=== PATIENT | female | born 1965 | race Native Hawaiian/Other Pacific Islander ===

== ENCOUNTER 2017-02-23 11:06 | Observation (INO) | payer OTHER ==
[~2017-02-23] VITALS: Ht 165.1 cm; Wt 69.6 kg
[2017-02-23] VITALS (7 sets, daily range): BP systolic 156–212; BP diastolic 68–110; TEMP 97.9–99; Ht 165.1 cm; Wt 69.6 kg
[~2017-02-23 11:06] MED LIST: METFORMIN ER1000 MG PO
[2017-02-23 12:15] LABS: PLATELET COUNT 237 K/uL (152-353)
[2017-02-23 12:26] LABS: POTASSIUM 3.8 mmol/L (3.6-5.2); SODIUM 136 mmol/L (136-145)
[2017-02-24 00:02] VITALS: BP 138/72; TEMP 98
[2017-02-24 04:00] VITALS: BP 164/77; TEMP 97.9
[2017-02-24 05:14] LABS: PLATELET COUNT 153 K/uL (152-353)
[2017-02-24 05:33] LABS: POTASSIUM 3.8 mmol/L (3.6-5.2); SODIUM 134 mmol/L (136-145)
[2017-02-24 08:00] VITALS: BP 144/73; TEMP 98
--- NOTE | 2017-02-24 09:10 | NUR ---
PATIENT HAS CELLULITIS AND ABCESS TO THE LEFT SIDE OF FACE AND IS RECEIVING IV ANTIBIOTICS BUT WILL BE ABLE TO BE DISCHARGED HOME ON PO ANTIBIOTICS.
[2017-02-24 12:00] VITALS: BP 168/77; TEMP 98.1
--- NOTE | 2017-02-24 15:02 | NUR ---
IV D/C'd. DISCHARGE INSTRUCTIONS SIGNED AND GIVEN. Pt. EXIT OUT OF FRONT ENTRANCE AMBULATING.
[2017-03-06] MEDS ORDERED: AMOXICILLIN250 M2 PO (00:03)
== END 2017-02-24 15:02 | disposition home or self-care (01) ==
LOC: ED 11:06 → MED/SURG 13:42
PROVIDERS: Emergency Medicine; ADMIT Specialist
DX: L03.211 Cellulitis of face (principal); R07.89 Other chest pain
CPT/HCPCS: 36591; 80048; 80053; 80061; 82550; 82948; 83036; 83735; 83880; 84484; 85027; 85379; 85610; 85730; 93005; 99220; 99283; G0378

== ENCOUNTER 2017-10-03 08:36 | Emergency (ER) | payer OTHER ==
[~2017-10-03] VITALS: Ht 165.1 cm; Wt 68.0 kg
[~2017-10-03 08:36] MED LIST changes: +AMOXICILLIN250 M2 PO
[2017-10-03 08:40] VITALS: TEMP 98.2
[2017-10-03 09:58] VITALS: BP 165/85
== END 2017-10-03 09:58 | disposition home or self-care (01) ==
LOC: ED 08:36
DX: J40 Bronchitis, not specified as acute or chronic (principal); J44.1 Chronic obstructive pulmonary disease with (acute) exacerbation; I10 Essential (primary) hypertension; Z91.19 Patient's noncompliance with other medical treatment and regimen; Z72.0 Tobacco use
CPT/HCPCS: 87081; 87880; 99283; J0360

== ENCOUNTER 2018-11-24 08:55 | Emergency (ER) | payer OTHER ==
[~2018-11-24] VITALS: Ht 165.1 cm; Wt 61.2 kg
[2018-11-24 10:20] VITALS: BP 161/82; TEMP 98.7
== END 2018-11-24 10:20 | disposition home or self-care (01) ==
LOC: ED 08:55
DX: K02.9 Dental caries, unspecified (principal); K04.7 Periapical abscess without sinus
CPT/HCPCS: 99282

== ENCOUNTER 2019-11-25 22:29 | Observation (INO) | payer OTHER ==
[~2019-11-25] VITALS: Ht 165.1 cm; Wt 66.0 kg
[2019-11-25 22:30] VITALS: BP 202/88; TEMP 98.9
[2019-11-25 22:45] VITALS: BP 166/89
[2019-11-25 22:57] LABS: PLATELET COUNT 244 K/uL (152-353)
[2019-11-25 23:15] VITALS: BP 158/77
[2019-11-25 23:46] LABS: PARTIAL THROMBOPLASTIN TIME 21.4 SECONDS (24.5-33.6)
[2019-11-26 00:15] VITALS: BP 166/76; TEMP 98.7
[2019-11-26 02:13] VITALS: BP 188/188; TEMP 98.2; Ht 165.1 cm; Wt 66.0 kg
[2019-11-26 04:03] VITALS: BP 188/94; TEMP 98.2
[2019-11-26 08:00] VITALS: BP 146/77; TEMP 98.1
[2019-11-26] MEDS ORDERED: METFORMIN ER1000 MG PO (13:01)
[2019-11-26] MEDS ORDERED: LISI20TA11 PO (13:02)
[2019-11-26] MEDS ORDERED: HYDROCHLOROT12.5 M1 PO (13:03)
== END 2019-11-26 15:20 | disposition home or self-care (01) ==
LOC: ED 22:29 → MED/SURG 11-26 00:30
PROVIDERS: Hospitalist; ADMIT Internal Medicine
DX: I10 Essential (primary) hypertension (principal); E87.1 Hypo-osmolality and hyponatremia; E87.5 Hyperkalemia; E11.65 Type 2 diabetes mellitus with hyperglycemia; F10.129 Alcohol abuse with intoxication, unspecified; Y90.5 Blood alcohol level of 100-119 mg/100 ml
CPT/HCPCS: 80053; 80307; 80320; 81000; 81002; 82550; 82962; 83880; 84484; 85027; 85610; 85730; 93005; 94760; 96360; 96375; 99220; 99284; G0378; J1650; J1815

== ENCOUNTER 2020-08-16 10:39 | Emergency (ER) | payer OTHER ==
[~2020-08-16] VITALS: Ht 165.1 cm; Wt 63.5 kg
[~2020-08-16 10:39] MED LIST changes: +HYDROCHLOROT12.5 M1 PO; +LISI20TA11 PO
[2020-08-16 11:48] VITALS: BP 158/80; TEMP 98
== END 2020-08-16 11:48 | disposition home or self-care (01) ==
LOC: ED 10:39
PROC: 0HQGXZZ Repair Left Hand Skin, External Approach (ICD-10-PCS; principal; 2020-08-16)
DX: S61.012A Laceration without foreign body of left thumb without damage to nail, initial encounter (principal); W26.0XXA Contact with knife, initial encounter; Y92.233 Cafeteria of hospital as the place of occurrence of the external cause
CPT/HCPCS: 90471; 90715; 99283

== ENCOUNTER 2020-08-22 09:34 | Emergency (ER) | payer OTHER ==
[~2020-08-22] VITALS: Ht 165.1 cm; Wt 63.5 kg
[2020-08-22 09:40] VITALS: BP 164/66; TEMP 97.5
== END 2020-08-22 10:10 | disposition home or self-care (01) ==
LOC: ED 09:34
DX: Z51.89 Encounter for other specified aftercare (principal)

== ENCOUNTER 2020-08-25 09:10 | Emergency (ER) | payer OTHER ==
[~2020-08-25] VITALS: Ht 165.1 cm; Wt 63.5 kg
[2020-08-25 09:45] VITALS: BP 160/90; TEMP 98
== END 2020-08-25 09:45 | disposition home or self-care (01) ==
LOC: ED 09:10
DX: Z48.02 Encounter for removal of sutures (principal)

== ENCOUNTER 2020-09-23 12:34 | Emergency (ER) | payer OTHER ==
[~2020-09-23] VITALS: Ht 165.1 cm; Wt 63.5 kg
[2020-09-23 12:42] VITALS: TEMP 98.8
[2020-09-23 13:19] LABS: PLATELET COUNT 205 K/uL (152-353)
[2020-09-23 13:31] LABS: POTASSIUM 3.8 mmol/L (3.6-5.2)
[2020-09-23 13:52] VITALS: BP 132/80
== END 2020-09-23 13:52 | disposition home or self-care (01) ==
LOC: ED 12:34
PROVIDERS: Family Medicine
DX: G62.89 Other specified polyneuropathies (principal); M79.671 Pain in right foot
CPT/HCPCS: 80053; 85027; 96372; 99283; J1885

== ENCOUNTER 2020-11-06 11:20 | Emergency (ER) | payer OTHER ==
[~2020-11-06] VITALS: Ht 165.1 cm; Wt 63.5 kg
[2020-11-06 11:31] VITALS: BP 186/84; TEMP 98.1
== END 2020-11-06 11:57 | disposition home or self-care (01) ==
LOC: ED 11:20
DX: E11.40 Type 2 diabetes mellitus with diabetic neuropathy, unspecified (principal); Z79.84 Long term (current) use of oral hypoglycemic drugs
CPT/HCPCS: 99281; 99282

== ENCOUNTER 2020-11-19 08:18 | Emergency (ER) | payer OTHER ==
[~2020-11-19] VITALS: Ht 165.1 cm; Wt 59.0 kg
[2020-11-19 08:28] VITALS: TEMP 97.7
[2020-11-19 09:16] LABS: PLATELET COUNT 210 K/uL (152-353)
[2020-11-19 09:28] LABS: POTASSIUM 3.9 mmol/L (3.6-5.2)
[2020-11-19 11:13] VITALS: BP 154/62
== END 2020-11-19 11:13 | disposition home or self-care (01) ==
LOC: ED 08:18
PROVIDERS: Hospitalist
DX: L03.032 Cellulitis of left toe (principal); E11.9 Type 2 diabetes mellitus without complications
CPT/HCPCS: 36415; 80048; 85027; 87040; 96365; 96375; 99284; J1885; J2930; J3370

== ENCOUNTER 2020-12-16 09:42 | Emergency (ER) | payer OTHER ==
[~2020-12-16] VITALS: Ht 165.1 cm; Wt 59.0 kg
[2020-12-16 09:49] VITALS: BP 143/75; TEMP 96.8
[2020-12-16] MEDS ORDERED: ACET-689 PO (10:00)
== END 2020-12-16 10:22 | disposition home or self-care (01) ==
LOC: ED 09:42
DX: M79.671 Pain in right foot (principal); G89.29 Other chronic pain
CPT/HCPCS: 99281

== ENCOUNTER 2020-12-29 12:03 | Outpatient (CLI) | payer OTHER ==
[~2020-12-29 12:03] MED LIST changes: +ACET-689 PO
== END 2020-12-29 21:21 | disposition home or self-care (01) ==
LOC: RAD 12:03
PROVIDERS: ATTEND Nurse Practitioner Family
DX: E13.621 Other specified diabetes mellitus with foot ulcer (principal)

== ENCOUNTER 2021-01-11 08:27 | Outpatient (CLI) | payer OTHER ==
[2021-01-11 09:19] LABS: PLATELET COUNT 277 K/uL (152-353)
== END 2021-01-11 19:22 | disposition home or self-care (01) ==
LOC: LABW 08:27
PROVIDERS: ATTEND Surgery
DX: Z01.812 Encounter for preprocedural laboratory examination (principal); I70.261 Atherosclerosis of native arteries of extremities with gangrene, right leg
CPT/HCPCS: 36415; 80053; 85027

== ENCOUNTER 2021-01-30 12:26 | Emergency (ER) | payer OTHER ==
[~2021-01-30] VITALS: Ht 165.1 cm; Wt 54.4 kg
[2021-01-30 12:40] VITALS: BP 145/79; TEMP 97.6
== END 2021-01-30 13:56 | disposition home or self-care (01) ==
LOC: ED 12:26
DX: M79.604 Pain in right leg (principal); G89.18 Other acute postprocedural pain
CPT/HCPCS: 96372; 99282; 99283; J1885

== ENCOUNTER 2021-02-15 13:25 | Emergency (ER) | payer OTHER ==
[~2021-02-15] VITALS: Ht 165.1 cm; Wt 54.4 kg
[2021-02-15 13:29] VITALS: TEMP 98.3
[2021-02-15 15:09] VITALS: BP 154/71
== END 2021-02-15 15:09 | disposition home or self-care (01) ==
LOC: ED 13:25
DX: M79.674 Pain in right toe(s) (principal); Z89.411 Acquired absence of right great toe
CPT/HCPCS: 99282; J1885

== ENCOUNTER 2021-03-12 09:00 | Emergency (ER) | payer OTHER ==
[2021-03-20 11:00] LABS: PLATELET COUNT 235 K/uL (152-353)
[2021-03-20 11:02] LABS: POTASSIUM 4.4 mmol/L (3.6-5.2)
== END 2021-03-12 11:49 | disposition home or self-care (01) ==
LOC: ED 09:00
PROVIDERS: Emergency Medicine Emergency Medical Services
DX: L03.115 Cellulitis of right lower limb (principal); Z89.411 Acquired absence of right great toe
CPT/HCPCS: 36415; 80048; 85027; 87070; 87205; 96360; 96361; 96365; 96375; 99284; J1885; J3370

== ENCOUNTER 2021-08-20 10:48 | Outpatient (CLI) | payer OTHER | END 2021-08-20 19:20 | disposition home or self-care (01) | LOC: CT 10:48 | PROVIDERS: ATTEND Nurse Practitioner Family | DX: K11.1 Hypertrophy of salivary gland (principal) | CPT/HCPCS: 36415; 82565; 84520; Q9963 ==

== ENCOUNTER 2021-12-25 10:02 | Outpatient (CLI) | payer BC | END 2021-12-25 19:42 | disposition home or self-care (01) | LOC: MAMMO 10:02 | PROVIDERS: ATTEND Nurse Practitioner Family | DX: Z12.31 Encounter for screening mammogram for malignant neoplasm of breast (principal) ==

== ENCOUNTER 2022-01-16 13:48 | Emergency (ER) | payer BC ==
[~2022-01-16] VITALS: Ht 165.1 cm; Wt 54.4 kg
[2022-01-16 13:55] VITALS: TEMP 99
[2022-01-16] MEDS ORDERED: CLINDAMYCIN HY300 MG PO ×2 (15:18)
[2022-01-16 15:25] VITALS: BP 137/79
== END 2022-01-16 15:25 | disposition home or self-care (01) ==
LOC: ED 13:48
DX: N61.0 Mastitis without abscess (principal)
CPT/HCPCS: 96372; 99282; J1885

== ENCOUNTER 2022-01-18 09:11 | Outpatient (CLI) | payer BC ==
[~2022-01-18 09:11] MED LIST changes: +CLINDAMYCIN HY300 MG PO
== END 2022-01-18 19:57 | disposition home or self-care (01) ==
LOC: US 09:11
PROVIDERS: ATTEND Nurse Practitioner Family
DX: N63.20 Unspecified lump in the left breast, unspecified quadrant (principal)

== ENCOUNTER 2022-03-03 12:26 | Emergency (ER) | payer BC ==
[~2022-03-03] VITALS: Ht 165.1 cm; Wt 68.0 kg
[2022-03-03 13:08] LABS: PLATELET COUNT 197 K/uL (152-353)
[2022-03-03 13:15] LABS: POTASSIUM 4.5 mmol/L (3.6-5.2)
[2022-03-03 13:31] LABS: PARTIAL THROMBOPLASTIN TIME 25.5 SECONDS (24.5-33.6)
[2022-03-03 14:08] VITALS: BP 148/77; TEMP 98.7
== END 2022-03-03 14:10 | disposition home or self-care (01) ==
LOC: ED 12:26
PROVIDERS: Hospitalist
DX: J06.9 Acute upper respiratory infection, unspecified (principal); J40 Bronchitis, not specified as acute or chronic; Z20.822 Contact with and (suspected) exposure to COVID-19
CPT/HCPCS: 80053; 82550; 83880; 84484; 85027; 85610; 85730; 87502; 87635; 87651; 93005; 94664; 96365; 96375; 99284; J0696; J2930; U0003

== ENCOUNTER 2022-03-21 15:08 | Emergency (ER) | payer BC ==
[~2022-03-21] VITALS: Ht 165.1 cm; Wt 68.0 kg
[2022-03-21 15:12] VITALS: BP 159/78; TEMP 97.2
[2022-03-21 15:30] LABS: PLATELET COUNT 234 K/uL (152-353)
[2022-03-21 15:37] LABS: POTASSIUM 3.8 mmol/L (3.6-5.2)
[2022-03-21 15:47] LABS: PARTIAL THROMBOPLASTIN TIME 23.8 SECONDS (24.5-33.6)
== END 2022-03-21 16:17 | disposition home or self-care (01) ==
LOC: ED 15:08
PROVIDERS: Emergency Medicine
DX: R07.89 Other chest pain (principal); F41.8 Other specified anxiety disorders; F43.0 Acute stress reaction
CPT/HCPCS: 80053; 83880; 84484; 85027; 85379; 85610; 85730; 93005; 99283

== ENCOUNTER 2022-05-09 07:46 | Outpatient (CLI) | payer BC, OTHER | END 2022-05-09 19:22 | disposition home or self-care (01) | LOC: CT 07:46 | PROVIDERS: ATTEND Nurse Practitioner Family | DX: R91.1 Solitary pulmonary nodule (principal) ==

== ENCOUNTER 2022-11-27 08:24 | Outpatient (CLI) | payer OTHER | END 2022-11-27 19:37 | disposition home or self-care (01) | LOC: RESP 08:24 | PROVIDERS: ATTEND Surgery | DX: Z01.812 Encounter for preprocedural laboratory examination (principal); Z01.810 Encounter for preprocedural cardiovascular examination; I70.212 Atherosclerosis of native arteries of extremities with intermittent claudication, left leg | CPT/HCPCS: 93005 ==

== ENCOUNTER 2023-04-10 16:39 | Emergency (ER) | payer OTHER ==
[~2023-04-10] VITALS: Ht 165.1 cm; Wt 66.2 kg
[2023-04-10 16:43] VITALS: TEMP 98.7
[2023-04-10 17:47] LABS: PLATELET COUNT 189 K/uL (152-353)
[2023-04-10 17:50] LABS: POTASSIUM 4.1 mmol/L (3.6-5.2)
[2023-04-10 18:32] VITALS: BP 175/84
== END 2023-04-10 18:32 | disposition home or self-care (01) ==
LOC: ED 16:39
PROVIDERS: Family Medicine
DX: I73.9 Peripheral vascular disease, unspecified (principal)
CPT/HCPCS: 80053; 85027; 85379; 85610; 85730; 99283

== ENCOUNTER 2023-05-28 08:00 | Outpatient (CLI) | payer OTHER | END 2023-05-28 18:53 | disposition home or self-care (01) | LOC: CT 08:00 | PROVIDERS: ATTEND Nurse Practitioner Family | DX: H65.01 Acute serous otitis media, right ear (principal) ==